=== PATIENT | male | born 2000 | race Caucasian/White ===

== ENCOUNTER 2020-04-11 02:29 | Emergency (ER) | payer SELFPAY ==
[2020-04-11] VITALS (41 sets, daily range): BP systolic 105–147; BP diastolic 56–99; PULSE 61–95; RESP 14–24; TEMP 35.4–36.8; O2SAT 83–100; BMI 30.8
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
[2020-04-11 02:41] LABS: Basophils # 0.1 10^3/uL (0.0-0.1); Basophils % 0.5 %; Eosinophils # 0.1 10^3/uL (0.0-0.8); Hematocrit 53.5 % (42.0-52.0); Hemoglobin 17.9 g/dL (11.7-16.6); Lymphocytes # 2.4 10^3/uL (0.8-4.8); Lymphocytes % 24.1 %; Mean Corpuscular HGB Conc 33.5 g/dL (30.0-36.0); Mean Corpuscular Hemoglobin 28.9 pg (28.0-34.0); Mean Corpuscular Volume 86.4 fL (80-94); Mean Platelet Volume 9.4 fL (7.4-10.4); Monocytes # 0.9 10^3/uL (0.2-0.9); Monocytes % 9.2 %; Neutrophils % 64.8 %; Nucleated Red Blood Cells % 0 %; Platelet Count 273 10^3/cmm (130-400); Red Blood Count 6.19 10^6/uL (4.1-5.3); White Blood Count 9.7 10^3/uL (4.0-10.0)
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
[2020-04-11] MEDS: iohexol 300 mg/mL 100 mL Btl IV (02:50)
[2020-04-11 02:51] LABS: INR 0.94 (0.8-1.2)
[2020-04-11 02:56] LABS: Alanine Aminotransferase 23 U/L (0-41); Alkaline Phosphatase 89 IU/L (40-130); Anion Gap 19.4 (5-19); Aspartate Amino Transferase 20 U/L (0-40); Blood Urea Nitrogen 9 mg/dL (6-20); Calcium 9.5 mg/dL (8.5-10.5); Carbon Dioxide 23 mmol/L (22-29); Chloride 101 mmol/L (98-107); Globulin 3.6 g/dL (1.3-4.6); Glucose 106 mg/dL (65-115); Osmolality Calculated 289 mOsm/kg (285-295); Potassium 3.4 mmol/L (3.5-5.1); Sodium 140 mmol/L (136-145); Total Bilirubin 0.3 mg/dL (0.15-1.2); Total Protein 8.6 g/dL (6.6-8.7)
[2020-04-11 02:57] LABS: Alcohol Level 381 mg/dL (0-10)
[2020-04-11 03:06] LABS: ABG PCO2 46.5 mmHg (35-45); ABG PH Result 7.28 (7.35-7.45); Base Excess ABG -4.8 mmol/L (-2.0-2.0); Blood Gas Sample Site Radial, right; Blood Gas Sample Type Arterial; Carboxyhemoglobin 0.7 %THgb (0.4-20.1); HCO3 ABG 22.1 mmol/L (22-26); HGB O2 Sat 97.4 % (95-100); Ionized Calcium Level - ABG 1.1 mmol/L (1.1-1.4); Methemoglobin 0.8 % (0.4-1.5); Oxygen Saturation ABG 98.8; Potassium Level - ABG 3.3 mmol/L (3.5-5.0)
--- NOTE | 2020-04-11 03:48 | PC.NURSE ---
review with provider. placed 2L NC oxygen
[2020-04-11 03:49] LABS: Amphetamines Screen Urine Negative (Negative); Barbiturates Screen Urine Negative (Negative); Benzodiazepines Screen Urine Negative (Negative); Cocaine Screen Urine Negative (Negative); Opiate Screen Urine Negative (Negative); PCP Screen Urine Negative (Negative); THC Screen Urine Positive (Negative)
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
--- NOTE | 2020-04-11 04:24 | ECG_ITS ---
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 Measurements Intervals [place] Rate: 65 P: 32 IA: 187 QRS: 77 QRSD: 103 T: 26 QT: 467 QTc: 489 Interpretive Statements SINUS RHYTHM Compared to ECG 07/13/2016 18:29:22 Sinus arrhythmia no longer present T-wave abnormality still present Electronically Signed On 04-13-2020 16:45:40 ABRASIVE WORKER by Lex Wooten M.D. [id number]
--- NOTE | 2020-04-11 07:01 | PC.NURSE ---
Report to GEORGE Davidson
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
== END 2020-04-11 09:15 | disposition home or self-care (01) ==
PROVIDERS: Emergency Provider Emergency Medicine
DX: Z04.1 Encounter for examination and observation following transport accident (principal); Y90.8 Blood alcohol level of 240 mg/100 ml or more; V49.9XXA Car occupant (driver) (passenger) injured in unspecified traffic accident, initial encounter
CPT/HCPCS: 12345; 36600; 51701; 70450; 71045; 71260; 72125; 74177; 80051; 80053; 80306; 80307; 82330; 82805; 83605; 85025; 85610; 93005; 99284; Q9967